=== PATIENT | female | born 1945 ===

== ENCOUNTER 2016-11-27 22:32 | Inpatient (IN) | payer MEDICARE, MEDICAID ==
[~2016-11-27] VITALS: Ht 154.9 cm; Wt 71.8 kg
[~2016-11-27 22:32] MED LIST: ACET325T51 PO; ALPR0.254 PO; ALPR0.5T8 PO; BACL10TA PO; BACL20TA PO; BISA-67 PO; CYAN500L3 SL; FAMO20T PO; FENTANYL 12 MCG/HR TRANSDERM; GABA-502 PO; GABA600T2 PO; LEVO500T16 PO; MELA1TAB11 PO; METR500T PO; OMEP20CA11 PO; OXYC5CAP4 PO; POLY17PO6 PO; Pyridoxine Hcl PO; RISP0.254 PO; SENN-133 PO; SERT50TA9 PO; TIZA2CAP9 PO
[2016-11-27 22:37] VITALS: BP 156/89; PULSE 71; RESP 10; O2SAT 95
--- NOTE | 2016-11-27 22:37 | ED.REPORT ---
HPI-General Illness Date of Service Nov 27, 2016 ED Provider: Shahbaz Hdz MD Pt is a 71 year old female with a hx of encephalopathy, HTN and CVA presenting to the ED via EMS from [facility] due to decreased level of consciousness onset at 2030 tonight. Associated symptoms include agitation and confusion. She was only responsive to painful stimuli; at baseline she is alert and oriented x4. Her library clerk reports that she was last known normal at 1900. However, on arrival paramedics, she became overtly awake and combative though still confused. She arrives to the ED sedated with ketamine per medics due to the pt becoming combative. No reported prior complaints of fever, vomiting, shortness of breath or wheezing. Nursing Notes Stated Complaint: ALTERED MENTAL STATE Chief Complaint: Altered mental status Nursing Notes Reviewed: Yes Allergies: Coded Allergies: aspirin (Verified Allergy, Severe, 04/10/16) Scheduled ([fentanyl 12mcg/hr]) 1 PATCH TRANSDERM q72 hours ([Pyridoxine Hcl]) 50 MG TABLET 50 MG PO HS Alprazolam (Alprazolam) 0.25 Mg Tablet 0.25 MG PO HS Baclofen (Baclofen) 20 Mg Tablet 20 MG PO QAM Baclofen (Baclofen) 10 Mg Tablet 10 MG PO TID at 11,1600,2100 Bisacodyl (Dulcolax) 5 Mg Tablet.dr 5 MG PO DAILY Cyanocobalamin (Vitamin B-12) (B-12) 500 Mcg Tab.rapdis 500 MCG SL DAILY Famotidine (Pepcid) 20 Mg Tablet 20 MG PO DAILY Gabapentin (Gabapentin) 600 Mg Tablet 600 MG PO BID Gabapentin (Gabapentin) 300 Mg Capsule 300 MG PO daily at 1600 Levofloxacin (Levaquin) 500 Mg Tablet 500 MG PO DAILY Melatonin/Pyridoxine (Melatonin 3 mg Tablet) 1 Each Tablet 2 EACH PO HS Metronidazole (Flagyl) 500 Mg Tablet 500 MG PO BID Omeprazole (Omeprazole) 20 Mg Capsule.dr 20 MG PO DAILY Polyethylene Glycol 3350 (Miralax) 17 Gm Powd.pack 17 GM PO BID Risperidone (Risperidone) 0.25 Mg Tablet 0.25 MG PO BID Sennosides (Senna) 8.6 Mg Tablet 8.6 MG PO HS Sertraline HCl (Sertraline) 50 Mg Tablet 50 MG PO DAILY oxyCODONE (oxyCODONE) 5 Mg Capsule 5 MG PO Q4H Scheduled PRN Acetaminophen (Acetaminophen) 325 Mg Tablet 650 MG PO Q4H PRN PRN For Pain Alprazolam (Alprazolam) 0.5 Mg Tablet 0.5 MG PO TID PRN PRN For Anxiety Polyethylene Glycol 3350 (Miralax) 17 Gm Powd.pack 17 GM PO DAILY PRN PRN For Constipation Sennosides (Senna) 8.6 Mg Tablet 17.2 MG PO BID PRN PRN For Constipation Tizanidine (Tizanidine) 2 Mg Capsule 2 MG PO q6 hours PRN PRN For Spasm General Time Seen by MD: 22:33 Chief Complaint Altered mental status Hx Obtained From: EMS Arrived By: Ambulance Sudden in Onset?: Yes Onset Occurred: 1 - 4 hours ago Symptom Duration: Since onset Recent Healthcare: No recent doctor visit, No recent hospitalization Similar Sx Previous: No Past Medical History Past Medical History CVA with residual L sided hemiparesis Hypertension Anxiety Depression Peptic ulcer disease Hx encephalopathy Anemia - iron deficiency GERD Chronic cervical spinal stenosis Past Surgical History Total hysterectomy Back Right hand x5 Smoking History Former Smoker Social History Other Social History: Ambulatory Status Wheelchair Review of Systems Unable to Obtain ROS Mental status Full Review of Systems Constitutional: Denies: Fever Respiratory: Denies: Wheezing GI: Denies: Vomiting Psychiatric: Reports: Agitation, Change mental status, Confusion Physical Exam Vital Signs Vital Signs Date Time Temp Pulse Resp B/P Pulse Ox O2 Delivery O2 Flow Rate FiO2 11/28/16 01:30 64 14 158/68 96 Room Air 11/28/16 01:00 71 11 161/69 93 Room Air 11/28/16 00:30 60 13 124/62 60 Room Air 11/28/16 00:00 64 13 120/50 94 Room Air 11/27/16 23:30 65 14 123/55 94 Room Air 11/27/16 22:37 37.8 71 10 156/89 95 Room Air Initial VS: Reviewed Head / Eyes: Atraumatic, Normocephalic, PERRL ENT: Mucous membranes moist, Conjunctiva normal, No scleral icterus Neck: Supple, Non-tender, Full range of motion Respiratory: Breath sounds normal, Clear to auscultation, No respiratory distress Cardiovascular: Regular rate & rhythm, Heart sounds normal, Intact distal pulses Extremities: Vascular intact, Neuro intact Skin: Warm, Dry, No cyanosis Abdomen: Atraumatic, Soft Bowel Sounds / Distention: Positive: Distention moderate Lower Extremity / Pelvis / MS: No deformity, Neurologic intact, Vascular intact Trace edema bilaterally Neurologic: No sensory deficits Mental Status: Positive: Pharmacologically sedated Interpretation & Diagnostics Lab Results Interpretation Result Diagram: 11/27/16231911/27/162319 Test 11/27/16 23:01 11/27/16 23:20 11/27/16 23:30 11/28/16 01:26 Urine Color Yellow (YELLOW) Urine Appearance Slightly cloudy Urine pH 6.0 (5.0-8.0) Urine Specific [place] 1.029 (1.003-1.035) Urine Protein Tracemg/dL (NEG,TRACE) Urine Glucose (UA) Negativemg/dL (NEGATIVE) Urine Ketones Negativemg/dL (NEGATIVE) Urine Occult Blood Negative (NEGATIVE) Urine Nitrite Positive (NEGATIVE) Urine Bilirubin Negative (NEGATIVE) Urine Urobilinogen Normalmg/dL (NORMAL) Urine Leukocyte Esterase Negative (NEGATIVE) Urine RBC 0-2/hpf (0-2) Urine WBC 6-10/hpf (0-5) Urine Epithelial Cells Moderate/hpf (NONE-MOD) Urine Crystals None seen (NONE SEEN) Urine Bacteria Many/hpf (NONE-FEW) Urine Hyaline Casts Rare/lpf (NONE) Urine Granular Casts None seen (NONE SEEN) Urine Waxy Casts None seen (NONE SEEN) Urine Red Blood Cell Casts None seen (NONE SEEN) Urine White Blood Cell Casts None seen (NONE SEEN) Urine Mucus Present (None Seen) Urine Trichomonas None seen (NONE SEEN) Urine Yeast None (NONE SEEN) Urinalysis Comment None Urine Culture Reflexed Indicated White Blood Count 13.3th/mm3 (3.8-10.1) Red Blood Count 4.79mil/mm3 (3.90-5.20) Hemoglobin 13.0g/dL (12.0-15.6) Hematocrit 41.1% (35.0-46.0) Mean Corpuscular Volume 85.8fL (81-100) Mean Corpuscular Hemoglobin 27.1pg (27.0-35.0) Mean Corpuscular Hemoglobin Concent 31.6% (32.0-37.0) Red Cell Distribution Width 14.5% (12.3-15.4) Platelet Count 336bil/L (150-400) Neutrophils (%) (Auto) 86.4% (40-74) Lymphocytes (%) (Auto) 10.3% (14-46) Monocytes (%) (Auto) 2.9% (4-12) Eosinophils (%) (Auto) 0.1% (0-5) Basophils (%) (Auto) 0.1% (0-3) Sodium Level 140mEq/L (134-144) Potassium Level 4.3mEq/L (3.5-5.2) Chloride Level 98mEq/L (97-108) Carbon Dioxide Level 25mmol/L (18-29) Blood Urea Nitrogen 12mg/dL (8-27) Creatinine 0.53mg/dL (0.57-1.00) Estimat Glomerular Filtration Rate 163mL/min (>59) Glucose Level 123mg/dL (60-99) Calcium Level 9.2mg/dL (8.5-10.1) Magnesium Level 2.0mg/dL (1.6-2.6) Total Bilirubin 0.3mg/dL (0.0-1.2) Aspartate Amino Transf (AST/SGOT) 23U/L (0-50) Alanine Aminotransferase (ALT/SGPT) 11U/L (0-32) Alkaline Phosphatase 138U/L (25-165) Total Protein 7.8g/dL (6.4-8.4) Albumin 3.9g/dL (3.4-5.0) Procalcitonin 0.07ng/mL (0.00-0.08) Alcohols < 10mg/dL (0-10) Lactic Acid Level 1.2mmol/L (0.4-2.0) ECG Interpretation ECG Interpretation: Sinus arrhythmia. Time: 23:13 Interpreted by: ED physician Normal ECG Interpretation: Normal rate (70) X-Ray Chest Interpretation Chest Xray Interpretation: Left lower lobe pneumonia View: Portable, 1 view Interpretation / Wet Read by: Wet read ED physician CT Head Interpretation CONCLUSION: No acute intracranial abnormality. This report was transmitted to the emergency room at 11/28/2016 - 12:13:43 AM PDT. Study: Head CT no contrast Interpretation / Wet Read by: Interpret - Radiologist Re-Eval/Medical Decision Med Decision/Clinical Course 71-year-old female with history of stroke, chronic pain on multiple meds, and encephalopathy, present with altered mental status tonight x-ray appears to show a right lower lobe pneumonia. Moderate UTI also noted. She has remained sedated and quiet since the application of ketamine in the field, well past the metabolic life of ketamine. Oxygenation is remained adequate. She is treated presumptively for aspiration pneumonia with Unasyn and azithromycin. Admitted now to the medicine service. UTI should be treated with the Unasyn and culture is pending. Time of Eval: 01:07 Patient Status: Condition improved Re-Evaluation/Progress Note: Pt sleeping comfortably. Consultation : Referral / Consult Name: Poonam Madrigal DO Consulted With: Hospitalist Call Returned at: 01:33 Intermission Coordinator: Will see patient, Agrees with plan, Accepts admit Counseled Regarding: Diagnosis, Lab results, Need for admission Discharge & Departure Primary Impression: Altered mental status Additional Impressions: Right lower lobe pneumonia Urinary tract infection Disposition: ADMITTED TO HOSPITAL Discharge Condition All VS Reviewed: Yes Condition: Improved Referrals: Art Vance DO (PCP) [place] Attestation Portions of this note were transcribed by Valeria Bryant. I, Dr. Hdz personally performed the history, physical exam and medical decision-making; I reviewed and confirmed the accuracy of the information in the transcribed note. Signed by: Alex Morelos, 11/27/2016 at 0136. copies to: Art Vance Christopher W MD Nov 27, 2016 22:37 VALERIA BRYNAT Nov 27, 2016 22:53 VALERIA BRYANT Nov 27, 2016 22:53
[2016-11-27] MEDS ORDERED: 0.9% Sodium Chloride 1,000 ML IV ONE (22:45)
[2016-11-27 23:30] VITALS: BP 123/55; PULSE 65; RESP 14; O2SAT 94
[2016-11-27 23:33] LABS: APPEARANCE,URINE SLIGHTLY CLOUDY (CLEAR,HAZY); COLOR,URINE YELLOW (YELLOW)
[2016-11-27 23:34] LABS: OCCULT BLOOD,URINE NEGATIVE (NEGATIVE); UROBILINOGEN,URINE NORMAL (NORMAL)
[2016-11-27 23:48] LABS: BASOPHILS % (AUTO) 0.1 % (0-3); EOSINOPHILS % (AUTO) 0.1 % (0-5); MONOCYTES % (AUTO) 2.9 % (4-12); Mean Corpuscular Hemoglobin 27.1 pg (27.0-35.0); Mean Corpuscular Volume 85.8 fL (81-100); NEUTROPHILS % (AUTO) 86.4 % (40-74); Platelet Count 336 bil/L (150-400)
[2016-11-28] VITALS (12 sets, daily range): BP systolic 120–181; BP diastolic 47–78; PULSE 60–93; RESP 11–20; O2SAT 60–96
[2016-11-28] MEDS ORDERED: Ampicillin-Sulbactam Inj 3,000 MG in 0.9% Sodium Chloride 100 ML IV ONE (01:10)
[2016-11-28] MEDS ORDERED: Azithromycin Inj 500 MG in Dextrose 5% w/Vial Mate 250 ML IV ONE (01:10)
[2016-11-28] MEDS ORDERED: Polyethylene Glycol (PEG) 17 Gm Powder PO PRN (02:20)
[2016-11-28] MEDS ORDERED: Alum-Mag Hydrox-Simeth 30 mL Suspension PO PRN (02:20)
--- NOTE | 2016-11-28 02:53 | PCM.HPMED ---
Subjective Date of Service Nov 28, 2016 Primary Provider: Admitting Physician: Primary Care Physician: Art Vance DO Attending Physician: Admit Status: From the Emergency Department Chief Complaint: Altered Mental Status Aspiration Pneumonia History of Present Illness: History per ED note as patient is unresponsive. Clarissa Browne is a 71 year old female with a history of encephalopathy, hypertension and CVA presenting to the ED via EMS from [facility] due to decreased level of consciousness onset at 2030 tonight. Associated symptoms include agitation and confusion. She was only responsive to painful stimuli; at baseline she is alert and oriented x4. Her library services coordinator reports that she was last known normal at 1900. She arrives to the ED sedated with ketamine per medics due to the pt becoming combative. No fever, vomiting, or wheezing. Review of Systems: Unable to obtain as patient is currently unresponsive Allergies Coded Allergies: aspirin (Verified Allergy, Severe, 04/10/16) Home Medications ([fentanyl 12mcg/hr]) 1 PATCH TRANSDERM q72 hours ([Pyridoxine Hcl]) 50 MG TABLET 50 MG PO HS Alprazolam (Alprazolam) 0.25 Mg Tablet 0.25 MG PO HS Baclofen (Baclofen) 20 Mg Tablet 20 MG PO QAM Baclofen (Baclofen) 10 Mg Tablet 10 MG PO TID at 11,1600,2100 Bisacodyl (Dulcolax) 5 Mg Tablet. 5 MG PO DAILY Cyanocobalamin (Vitamin B-12) (B-12) 500 Mcg Tab.rapdis 500 MCG SL DAILY Famotidine (Pepcid) 20 Mg Tablet 20 MG PO DAILY Gabapentin (Gabapentin) 600 Mg Tablet 600 MG PO BID Gabapentin (Gabapentin) 300 Mg Capsule 300 MG PO daily at 1600 Levofloxacin (Levaquin) 500 Mg Tablet 500 MG PO DAILY Melatonin/Pyridoxine (Melatonin 3 mg Tablet) 1 Each Tablet 2 EACH PO HS Metronidazole (Flagyl) 500 Mg Tablet 500 MG PO BID Omeprazole (Omeprazole) 20 Mg Capsule.dr 20 MG PO DAILY Polyethylene Glycol 3350 (Miralax) 17 Gm Powd.pack 17 GM PO BID Risperidone (Risperidone) 0.25 Mg Tablet 0.25 MG PO BID Sennosides (Senna) 8.6 Mg Tablet 8.6 MG PO HS Sertraline HCl (Sertraline) 50 Mg Tablet 50 MG PO DAILY oxyCODONE (oxyCODONE) 5 Mg Capsule 5 MG PO Q4H Scheduled PRN Acetaminophen (Acetaminophen) 325 Mg Tablet 650 MG PO Q4H PRN PRN For Pain Alprazolam (Alprazolam) 0.5 Mg Tablet 0.5 MG PO TID PRN PRN For Anxiety Polyethylene Glycol 3350 (Miralax) 17 Gm Powd.pack 17 GM PO DAILY PRN PRN For Constipation Sennosides (Senna) 8.6 Mg Tablet 17.2 MG PO BID PRN PRN For Constipation Tizanidine (Tizanidine) 2 Mg Capsule 2 MG PO q6 hours PRN PRN For Spasm PMH CVA with residual L sided hemiparesis Hypertension Anxiety Depression Peptic ulcer disease Hx encephalopathy Anemia - iron deficiency GERD Chronic cervical spinal stenosis Surgical History Total hysterectomy Back Right hand x5 Family History Unable to obtain as patient unresponsive Social History Hx Alcohol Use: Yes Hx Substance Use: Yes (used to smoke marijuana) Smoking Status: Former Smoker Exam Vital Signs Vital Sign - Last Date Time Temp Pulse Resp B/P Pulse Ox O2 Delivery O2 Flow Rate FiO2 11/27/16 22:37 37.8 71 10 156/89 95 Room Air Exam General: Patient is somnolent and unarousouable. Did open eyes to name very briefly. HEENT: Normocephalic, atraumatic. Anicteric sclerae, Neck: Supple, Non-tender Cardiovascular: Regular rate and rhythm with no murmurs, rubs, or gallops appreciated Pulmonary: Clear to auscultation bilaterally anteriorly. Normal respiratory effort with no use of accessory muscles. Abdomen: Bowel tones present. Soft, nontender, mildly distended. No hepatosplenomegaly or masses appreciated. Extremities: mild pitting edema, No clubbing, cyanosis, or lymphadenopathy appreciated. Skin: Normal temperature, turgor, and texture; no rash, ulcers, or subcutaneous nodules appreciated. Fentanyl patch seen on upper chest Neurological: Unable to assess as patient is somnolent and unresponsive Psychiatric: Sedated and currently unresponsive Lab and Diagnostics Labs Item Value Date Time Urine Color Yellow 11/27/162300 Urine Appearance Slightly cloudy 11/27/162300 Urine pH 6.0 11/27/162300 Urine Nitrite Positive 11/27/162300 Urine Leukocyte Esterase Negative 11/27/162300 Urine WBC 6-10 /hpf 11/27/162300 Urine RBC 0-2 /hpf 11/27/162300 Urine Occult Blood Negative 11/27/162300 Urine Epithelial Cells Moderate /hpf 11/27/162300 Urine Bacteria Many /hpf 11/27/162300 Alcohols < 10 mg/dL 11/27/162329 Procalcitonin 0.07 ng/mL 11/27/162329 Lactic Acid Level 1.8 mmol/L 11/27/162319 White Blood Count 13.3 th/mm3 H 11/27/162319 Result Diagram: 11/27/16231911/27/162319 X-Rays, CTs and MRIs Chest Xray Interpretation: Left lower lobe pneumonia View: Portable, 1 view Interpretation / Wet Read by: Wet read ED physician Head CT no contrast CONCLUSION: No acute intracranial abnormality. This report was transmitted to the emergency room at 11/28/2016 - 12:13:43 AM PDT. 12-lead ECG Sinus Arrhythmia Additional Diagnostics: ABG 03:21:00 -_ pH_7.363 pCO2_50.5 pO2_65.7 HCO3-28.0 ROOM AIR Assessment & Plan Clarissa Browne is a 71 year old female with a history of encephalopathy, hypertension and CVA presenting to the ED via EMS from [facility] due to altered mental status found to have RLL pneumonia on chest x-ray. Encephalopathy, Present on Admission, Active Likely metabolic. Patient obtunded when evaluating in the ED room 4 hours after ketamine. Prior to that she was apparently confused and combative. Likely secondary to aspiration pneumonia and possible UTI. - CT head shows no acute intracranial abnormalities - ABG ordered due to encephalopathy. Results as above. - Treat aspiration pneumonia and UTI with antibiotics as below - Patient has history of CVA, may consider MRI if not improving clinically. Aspiration Pneumonia, Present on Admission, Active Patient apparently aspirated food per history. Receieved Unasyn and azithromycin in the ED. Chest X-ray reviewed, showing RLL pneumonia. - Will start Zosyn to cover broadly. May narrow based off of sputum cultures. - MRSA swab, Respiratory Viral PCR, Urine strep and legionella antibodies, sputum culture, procalcitonin - Blood cultures pending Suspected Cystitis, Present on Admission, Active Positive Nitrite, Negative Leukocyte esterase, 6-10 WBC, many bacteria. Questionable cystitis. - Urine cultures pending - IV Zosyn COPD, Present on Admission, Active Not in current exacerbation. Patient has intermittent home nocturnal O2 use per history of prior admission, but does not use home inhalers - Monitor O2 - Supplement oxygen - Duonebs Q4HWA prn for shortness of breath Dysphagia, chronic On previous admission in April, patient required Pureed/honey thick diet,1;1 feeding as per speech therapist - Speech therapy evaluation - NPO till swallow eval done - Aspiration precautions Functional Quadriparesis, chronic Observed during prior admission. 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 - Patient requires every 4 hours bed turns etc. - Discussed with pharmacy about medications, med rec will need to be done in the AM after call is made to outpatient pharmacy to very medications. - Will hold home baclofen and flexiril as patient is currently obtunded. Hypertension, Present on Admission, Active - Continue home medications when med rec is done Patient Status: Patient is admitted under inpatient status with expected length of stay greater than 2 midnights due to severity of presenting symptoms and risk of adverse event. Code Status: Full code, unable to evaluate as patient is currently unresponsive. Will need reevaluation. VTE Prophylaxis: Sub-Q Heparin (Unfractionated) VTE Mechanical Devices: Intermittant Pneumatic CD Resuscitation Status: CPR: Attempt Resuscitation Attending Statement The patient was seen and examined together with house staff on 11/27/2016 and I agree with the history, exam and plan as outlined in the note above. Devante Cardenas DO Nov 28, 2016 01:46 Poonam Madrigal DO Nov 28, 2016 06:33
--- NOTE | 2016-11-28 03:00 | NUR ---
Pt admitted to RM 2030 from the ER. Pt came via stretcher. Full assist, no weight bearing. Pt asleep but responsive to stimuli. Upon assessment, pt awoke and began resisting tx. Refuses BP measurement, began to bite and hit. Soft non-violent [place] restraints placed on both wrists. Carrillo in place. Telemetry on.
[2016-11-28] MEDS ORDERED: TIZANIDINE 2 MG PO PRN (03:10)
[2016-11-28] MEDS ORDERED: OXYCODONE 5 MG PO SCH (03:10)
--- NOTE | 2016-11-28 03:28 | ABG ---
DateTimeAnalyzed 03:21:00 -_ pH ____7.363 - 7.350 7.450 pCO2 ___50.5__ -mmHg 35.0 45.0 pO2 ___65.7__ -mmHg 69.0 116 HCO3- ___28.0__ -mmol/L 22.0 26.0 ABE ____2.4__ -mmol/L -2.0 2.0 tHb ___11.5__ -g/dL O2Hb ___89.9__ -% COHb ____1.3__ -% MetHb ____0.5__ -% sO2 ___91.5__ -% FIO2 ___21.0__ -% Drawn By blf - Spontaneous_RR ___10.0__ -b/min Oxygen Device 1 _ROOM AIR - B 757 -mmHg tO2 ___14.6__ -Vol% Manuel test _Positive -
[2016-11-28] MEDS ORDERED: Haloperidol 5 mg/mL Inj IVPUSH ONE (05:50)
--- NOTE | 2016-11-28 07:23 | DRSVH ---
PROCEDURE: CT BRAIN WITHOUT CONTRAST ([id number]) INDICATIONS: ALTERED MENTAL STATUS TECHNIQUE: Noncontrast 4.5 mm thick angled axial sections acquired from the foramen magnum to the vertex, with c oronal reformats. COMPARISON: Outside Film, CT, CT BRAIN WO CON, 01/09/2016, 17:33. FINDINGS: Image quality: Good CSF spaces: Basal cisterns are patent. No extra-axial fluid collections. The ventricles are symmet david in size and shape. Brain: No intracranial bleeds or masses. There is cerebral volume loss for age, with resultant vent ricular and sulcal prominence. There are periventricular and deep white matter chronic small vessel ischemic changes. There is intracranial internal carotid artery atherosclerosis. Skull and face: Calvarium and visualized facial bones appear intact, without suspicious lesions. Sinuses: Visualized sinuses and mastoids are clear. IMPRESSION: No acute intracranial abnormality. No change since the previous CT of the head without co ntrast. Dictated by: Eliu Terry M.D. on 11/28/2016 at 7:18 this report corresponds to the findings of pedro erazo preliminary NSR report. Approved by: Eliu Terry M.D. on 11/28/2016 at 7:21
[2016-11-28] MEDS ORDERED: RISPERIDONE 0.25 MG PO SCH (08:30)
[2016-11-28] MEDS: Famotidine Inj 20 MG in IV Premix 1 EACH IV SCH ×2 (08:33→20:39)
[2016-11-28] MEDS: Piperacillin-Tazo 3.375 Gm Inj 3.375 GM in Dextrose 5% Minibag Plus 50 ML IV SCH ×2 (08:33→16:44)
[2016-11-28] MEDS: Heparin 5,000 Unit/mL Inj SUBQ SCH ×2 (08:38→16:44)
--- NOTE | 2016-11-28 09:00 | NUR ---
PO intake Pt took meds whole in apple sauce this am and did fine. She then asked for a drink and I made nectar thick water. When drinking she later started coughing. Swallow eval already ordered will give them a heads up.
--- NOTE | 2016-11-28 09:31 | DRSVH ---
PROCEDURE: X-RAY CHEST ONE VIEW, PORTABLE ([id number]) INDICATIONS: altered mental status TECHNIQUE: One view of the chest was acquired. COMPARISON: [facility], CR, XR CHEST 1VW (PORTABLE), 04/16/2016, 9:45. [facility], CR, XR CHEST 1VW (PORTABLE), 04/13/2016, 9:35. FINDINGS: Surgical changes and devices: None. Lungs and pleura: No pleural effusions or pneumothorax. Lungs are edematous. Mediastinum: Mediastinal contours appear normal. Heart size is globally enlarged. Bones and chest wall: No suspicious bony lesions. Overlying soft tissues appear unremarkable. IMPRESSION: Chronic CHF pattern, with possible acute exacerbation. Dictated by: Geraldo Middleton M.D. on 11/28/2016 at 9:29 Approved by: Geraldo Middleton M.D. on 11/28/2016 at 9:29
[2016-11-28] MEDS: ALPRAZolam 0.5 mg Tablet PO PRN (11:58)
--- NOTE | 2016-11-28 13:31 | DRSVH ---
PROCEDURE: X-RAY CHEST ONE VIEW, PORTABLE ([id number]) INDICATIONS: fu possible aspiration pna TECHNIQUE: One view of the chest was acquired. COMPARISON: [facility], CR, XR CHEST 1VW (PORTABLE), 11/27/2016, 23:00. [facility], CR, XR CHEST 1VW (PORTABLE), 04/16/2016, 9:45. FINDINGS: Surgical changes and devices: None. Lungs and pleura: No pleural effusions or pneumothorax. Lungs are abnormal with a right lower lobe alveolar consolidation pattern consistent with pneumonia or aspiration. Mediastinum: Mediastinal contours appear normal. Heart size is globally enlarged, to a mild degree. Bones and chest wall: No suspicious bony lesions. Overlying soft tissues appear unremarkable. IMPRESSION: Right lower lobe pneumonia, versus aspiration, mild cardiomegaly. Dictated by: Geraldo Middleton M.D. on 11/28/2016 at 13:29 Approved by: Geraldo Middleton M.D. on 11/28/2016 at 13:30
[2016-11-28 14:17] LABS: APPEARANCE,URINE HAZY (CLEAR,HAZY); COLOR,URINE STRAW (YELLOW); OCCULT BLOOD,URINE TRACE (NEGATIVE); PH,URINE 6.5 (5.0-8.0); UROBILINOGEN,URINE NORMAL (NORMAL)
[2016-11-28] MEDS: oxyCODONE-Acetamin 5-325 mg Tablet PO PRN ×2 (14:39→20:39)
--- NOTE | 2016-11-28 15:56 | NUR ---
Evaluation completed. Please go to "Notes" then click on "Assessments and Notes" (bottom left corner of screen). Then select appropriate discipline tab on top of screen.
--- NOTE | 2016-11-28 19:04 | PCM.PNMED ---
Subjective Date of Service Nov 28, 2016 Subjective Assessment: Patient laying in bed on exam. Patient is cognizant and able to communicate. Patient is anxious and shows some disconnected thought patterns. Family in the room states that this is baseline for her. Patient states that she feels like her sensation in the left side of her face is decreased since admission including mild numbness of the lips. Patient also reports a mild headache which she attributes to being awake "all night". She describes no increasing muscle weakness on the left. No other focal neurological symptoms noted. Events Overnight: No acute events overnight. ROS: Patient complains of chills, and minor abdominal pain. Denies fever, nausea /vomiting, headache, weakness, chest pain, shortness of breath, increased swelling in hands or feet. Exam Vital Signs Vital Sign - Last Date Time Temp Pulse Resp B/P Pulse Ox O2 Delivery O2 Flow Rate FiO2 11/28/16 16:18 36.8 65 20 164/77 95 Room Air Intake and Output 11/27/16 11/27/16 11/28/16 Cumulative From/Thru 15:00 23:00 07:00 11/28/16 03:30 - 11/28/16 06:23 Intake Total 0 ml 0 ml Output Total 300 ml 300 ml Balance -300 ml -300 ml Intake Oral 0 ml 0 ml Output Urine Total 300 ml 300 ml Exam General: No acute distress, well-developed, well-nourished HEENT: Normocephalic, atraumatic. External ears without defect. Pupils equal, round, and reactive to light and accommodation. Anicteric sclerae, moist conjunctivae. Cardiovascular: Regular rate and rhythm with no murmurs, rubs, or gallops appreciated Pulmonary: Nonproductive cough and minimal wheeze, fine crackles appreciated at the lower lung bases, no rhonchi. Normal respiratory effort with no use of accessory muscles. Abdomen: Bowel tones present. Soft, nontender, nondistended. Extremities: Limited movement of the left arm and leg due to previous CVA. No clubbing, cyanosis, edema Skin: Normal temperature, turgor, and texture; no rash, ulcers, or subcutaneous nodules appreciated. Neurological: Cranial nerves grossly intact. Decreased sensation to touch on the entire left side. Normal muscle strength on the right, decreased tone and muscle wasting on the left. Psychiatric: Anxious, easily fearful. Alert and oriented to person, place, and time IVs and Medications IV Fluids 50 mL Zosyn Medications Reviewed: Medications were reviewed in detail Medications Percocet Xanax Lab and Diagnostics Result Diagram: 11/27/16231911/27/162319 Microbiology MRSA PCR negative Urine cultures no growth to date Blood cultures pending 2 Urine strep pneumoniae negative Microbiology ADENOVIRUS RESPIRATORY PCR Final 11/28/16 Not Detected CORONOVIRUS 229E Final 11/28/16 Not Detected CORONOVIRUS HKU1 Final 11/28/16 Not Detected CORONOVIRUS NL63 Final 11/28/16 Not Detected CORONOVIRUS OC43 Final 11/28/16 Not Detected INFLUENZA A PCR Final 11/28/16 Not Detected INFLUENZA B PCR Final 11/28/16 Not Detected METAPNEUMOVIRUS PCR Final 11/28/16 Not Detected RHINOVIRUS OR ENTEROVIRUS PCR Final 11/28/16 Not Detected PARAINFLUENZA 1 PCR Final 11/28/16 Not Detected PARAINFLUENZA 2 PCR Final 11/28/16 Not Detected PARAINFLUENZA 3 PCR Final 11/28/16 Not Detected PARAINFLUENZA 4 PCR Final 11/28/16 Not Detected RESP SYNCYTIAL VIRUS PCR Final 11/28/16 Not Detected Microbiology (Continued) CHLAMDOPHILIA PNEUMONIAE PCR Final 11/28/16 Not Detected MYCOPLASMA PNEUMONIAE PCR Final 11/28/16 MYCO PNEUMONIAE PCR Not Detected Reference Interval Not Detected X-Rays, CTs and MRIs Chest Xray Interpretation: Left lower lobe pneumonia View: Portable, 1 view Interpretation / Wet Read by: Wet read ED physician Head CT no contrast CONCLUSION: No acute intracranial abnormality. This report was transmitted to the emergency room at 11/28/2016 - 12:13:43 AM PDT. 12-lead ECG Sinus Arrhythmia Additional Diagnostics ABG 03:21:00 -_ pH_7.363 pCO2_50.5 pO2_65.7 HCO3-28.0 ROOM AIR Assessment & Plan Clarissa Browne is a 71 year old female with a history of encephalopathy, hypertension and CVA presenting to the ED via EMS from [facility] due to altered mental status found to have RLL pneumonia on chest x-ray. Encephalopathy, Present on Admission, Active Likely metabolic. Patient obtunded when evaluating in the ED room 4 hours after ketamine. Prior to that she was apparently confused and combative. Likely secondary to aspiration pneumonia and possible UTI. - CT head shows no acute intracranial abnormalities - ABG ordered due to encephalopathy. Results as above. - Treat aspiration pneumonia and UTI with antibiotics as below - Patient has history of CVA, symptoms present today may indicate a minor stroke , however, the CT was completed so recently it is unlikely that a repeat CT scan will be beneficial at this time. Since the constellation of symptoms described by the patient are so vague and minor at this point, I believe it is reasonable to continue watching the patient overnight and consider MRI if symptoms worsen. Aspiration Pneumonia, Present on Admission, Active Patient apparently aspirated food per history. Receieved Unasyn and azithromycin in the ED. Chest X-ray reviewed, showing RLL pneumonia. - Continue Zosyn to cover broadly. May narrow based off of sputum cultures. - MRSA swab, Respiratory Viral PCR, Urine strep and legionella antibodies, negative. - Procalcitonin 0.07 - Blood cultures 2 pending Cystitis, Present on Admission, active. Initial UA showed Positive Nitrite, Negative Leukocyte esterase, 6-10 WBC, many bacteria. Results Questionable for cystitis. - Repeat urine analysis shows few bacteria with 0-5 WBC. - Urine cultures show E. Coli. with sensitivity to Augmentin. Continue IV Zosyn for now. Upon DC change to PO Augmentin. COPD, Present on Admission, Active Not in current exacerbation. Patient has intermittent home nocturnal O2 use per history of prior admission, but does not use home inhalers - Monitor O2 - Supplement oxygen - Duonebs Q4HWA prn for shortness of breath Dysphagia, chronic On previous admission in April, patient required Pureed/honey thick diet,1;1 feeding as per speech therapist - Speech therapy evaluation done. Speech therapy requested x-ray barium swallow with food - NPO until further assessment can be undergone. - Aspiration precautions Functional Quadriparesis, chronic Observed during prior admission. 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 - Patient requires every 4 hours bed turns etc. - Discussed with pharmacy about medications, med rec will need to be done in the AM after call is made to outpatient pharmacy to very medications. - Baclofen restarted PRN. Percocet and alprazolam also available PRN. Patient Status: We will monitor the pt in the hospital today, likely discharge in 48 hrs if obvious clinical improvement is made. Code Status: Full code VTE Prophylaxis: Sub-Q Heparin (Unfractionated) VTE Mechanical Devices: Intermittant Pneumatic CD Resuscitation Status: CPR: Attempt Resuscitation Attending Statement The patient was seen and examined together with Dr. Gonzalez on 11/30/16 and I have added additional information to the note above. Griffin Gonzalez DO Nov 28, 2016 19:04 Susana Chery DO Nov 30, 2016 18:20
[2016-11-28] MEDS ORDERED: MELA3TAB35 PO (22:07)
[2016-11-28] MEDS ORDERED: MAGN250T29 PO (22:11)
[2016-11-28] MEDS ORDERED: PYR50 PO (22:11)
[2016-11-29] VITALS (7 sets, daily range): BP systolic 139–196; BP diastolic 63–88; PULSE 55–85; RESP 18–20; O2SAT 93–97
[2016-11-29] MEDS: Piperacillin-Tazo 3.375 Gm Inj 3.375 GM in Dextrose 5% Minibag Plus 50 ML IV SCH ×3 (01:13→16:19)
[2016-11-29] MEDS: Heparin 5,000 Unit/mL Inj SUBQ SCH ×3 (01:13→16:17)
[2016-11-29] MEDS: oxyCODONE-Acetamin 5-325 mg Tablet PO PRN ×4 (03:06→23:52)
--- NOTE | 2016-11-29 03:34 | NUR ---
Needs Pt is teary and yells out for demands. Requesting several blankets and heat turned to top degree. Given 3 blankets and room at 74 degrees. Pt is diaphoretic and wet. States that "I feel cold all the time." When told that she is sweating d/t so many blankets pt gets agitated. Difficult to reason with.
[2016-11-29] MEDS: ALPRAZolam 0.5 mg Tablet PO PRN ×4 (03:40→23:52)
--- NOTE | 2016-11-29 03:44 | NUR ---
BP Provider notified that pt's BP trend is increasing. Currently 196/71.
[2016-11-29 07:53] LABS: BASOPHILS % (AUTO) 0.5 % (0-3); MONOCYTES % (AUTO) 8.8 % (4-12); Mean Corpuscular Hemoglobin 27.4 pg (27.0-35.0); Mean Corpuscular Volume 86.7 fL (81-100); NEUTROPHILS % (AUTO) 59.6 % (40-74); Platelet Count 326 bil/L (150-400)
[2016-11-29] MEDS: Famotidine Inj 20 MG in IV Premix 1 EACH IV SCH ×2 (08:51→21:27)
[2016-11-29] MEDS: Ondansetron 2 mg/mL 2 mL Inj IVPUSH PRN ×2 (10:57→23:22)
--- NOTE | 2016-11-29 11:56 | NUR ---
Anxiety Patient c/o nausea and anxiety as well as a 10/10 RODRIGUEZ after returning from barium swallow. PRN baclofen, percocet, xanax and zofran given. On reassessment patient stated that the medications were not helping. She also c/o being soaking wet. Patient brief/bedding/gown all completely dry but were changed per pt request. Temp 99.1, all other VSS. Skin warm and slightly clammy. She continued to c/o feeling wet and cold. Warm blankets were provided and MD notified. Patient currently resting with eyes closed
--- NOTE | 2016-11-29 13:03 | PCM.PNMED ---
Subjective Date of Service Nov 29, 2016 Subjective Assessment: Patient is awake and alert lying in bed on assessment. Patient is concerned about getting the appropriate pain medication which was addressed. She was taken for the barium swallow this morning around 10:00, since that time she has been complaining of chills and a coolness which is felt locally on her backside and perianal area. She states that she feels wet. This was assessed however no wetness could be appreciated. Patient states that her symptoms complained of yesterday, specifically headache and numbness, had resolved overnight but she is experiencing headache again this morning. Events Overnight: No acute events overnight. ROS: Complains of headache which waxes and wanes, mild abdominal pain. Denies nausea/vomiting, weakness, abdominal pain, chest pain, shortness of breath, increased swelling in hands or feet. Exam Vital Signs Vital Sign - Last Date Time Temp Pulse Resp B/P Pulse Ox O2 Delivery O2 Flow Rate FiO2 11/29/16 09:13 Supplement Oxygen 11/29/16 09:00 55 11/29/16 08:48 37.3 18 164/88 97 2.00 Intake and Output 11/28/16 11/28/16 11/29/16 Cumulative From/Thru 15:00 23:00 07:00 11/28/16 03:30 - 11/29/16 05:57 Intake Total 174 ml 118 ml 292 ml Output Total 400 ml 1400 ml 2100 ml Balance -226 ml -1282 ml -1808 ml Intake Oral 118 ml 118 ml IV Total 174 ml 174 ml Output Urine Total 400 ml 1400 ml 2100 ml # Bowel Movements 0 0 Exam General: Mild distress, well-developed, well-nourished HEENT: Normocephalic, atraumatic. External ears without defect. Pupils equal, round, and reactive to light and accommodation. Anicteric sclerae, moist conjunctivae. Cardiovascular: Regular rate and rhythm with no murmurs, rubs, or gallops appreciated Pulmonary: Clear to auscultation bilaterally no wheezes, Rales or rhonchi appreciated. Normal respiratory effort with no use of accessory muscles. Abdomen: Bowel tones present. Soft, nontender, nondistended. Extremities: Limited movement of the left arm and leg due to previous CVA. No clubbing, cyanosis, edema Skin: Normal temperature, turgor, and texture; no rash, ulcers, or subcutaneous nodules appreciated. Neurological: Cranial nerves grossly intact. Decreased sensation to touch on the entire left side. Normal muscle strength on the right, decreased tone and muscle wasting on the left. Psychiatric: Anxious, easily fearful. Alert and oriented to person, place, and time IVs and Medications IV Fluids IV Zosyn 50 mL Medications Reviewed: Medications were reviewed in detail Medications High-risk medications include: Percocet Baclofen Alprazolam Lab and Diagnostics Result Diagram: 11/29/1674311/29/16743 Microbiology MRSA PCR negative Urine cultures no growth to date Blood cultures pending 2 Urine strep pneumoniae negative Microbiology ADENOVIRUS RESPIRATORY PCR Final 11/28/16 Not Detected CORONOVIRUS 229E Final 11/28/16 Not Detected CORONOVIRUS HKU1 Final 11/28/16 Not Detected CORONOVIRUS NL63 Final 11/28/16 Not Detected CORONOVIRUS OC43 Final 11/28/16 Not Detected INFLUENZA A PCR Final 11/28/16 Not Detected INFLUENZA B PCR Final 11/28/16 Not Detected METAPNEUMOVIRUS PCR Final 11/28/16 Not Detected RHINOVIRUS OR ENTEROVIRUS PCR Final 11/28/16 Not Detected PARAINFLUENZA 1 PCR Final 11/28/16 Not Detected PARAINFLUENZA 2 PCR Final 11/28/16 Not Detected PARAINFLUENZA 3 PCR Final 11/28/16 Not Detected PARAINFLUENZA 4 PCR Final 11/28/16 Not Detected RESP SYNCYTIAL VIRUS PCR Final 11/28/16 Not Detected Microbiology (Continued) CHLAMDOPHILIA PNEUMONIAE PCR Final 11/28/16 Not Detected MYCOPLASMA PNEUMONIAE PCR Final 11/28/16 MYCO PNEUMONIAE PCR Not Detected Reference Interval Not Detected X-Rays, CTs and MRIs Chest Xray Interpretation: Left lower lobe pneumonia View: Portable, 1 view Interpretation / Wet Read by: Wet read ED physician Head CT no contrast CONCLUSION: No acute intracranial abnormality. This report was transmitted to the emergency room at 11/28/2016 - 12:13:43 AM PDT. 12-lead ECG Sinus Arrhythmia Additional Diagnostics ABG 03:21:00 -_ pH_7.363 pCO2_50.5 pO2_65.7 HCO3-28.0 ROOM AIR Assessment & Plan Clarissa Browne is a 71 year old female with a history of encephalopathy, hypertension and CVA presenting to the ED via EMS from [facility] due to altered mental status found to have RLL pneumonia on chest x-ray. Encephalopathy, Present on Admission, Resolving Likely metabolic. Patient obtunded when evaluating in the ED room 4 hours after ketamine. Prior to that she was apparently confused and combative. Likely secondary to aspiration pneumonia. - CT head shows no acute intracranial abnormalities - ABG ordered due to encephalopathy. Results as above. - Treat aspiration pneumonia with antibiotics as below - Patient has history of CVA, 11/28 patient complained of vague neurological symptoms including numbness of the left face, and daughter thought that there might be a change to her typical appearance specifically on the left side. However, based on the fact that the original CT was negative a repeat CT scan or MRI will be done based on progressive neurological symptoms. Aspiration Pneumonia, Present on Admission, Active Patient apparently aspirated food per history. Received Unasyn and azithromycin in the ED. Chest X-ray reviewed, showing RLL pneumonia. - Continue Zosyn to cover broadly. May narrow based off of PCR results. Patient does not have productive cough and sputum cultures were not able to be obtained. - MRSA swab, Respiratory Viral PCR, Urine strep and legionella antibodies, negative. - Procalcitonin 0.07 - Blood cultures 2 finalized, one of the cultures shows gram-positive cocci, the other culture shows no growth. Based on the MRSA swab negative no need for vancomycin at this time, continue IV Zosyn. - White count returned to normal, will continue to monitor patient in the hospital today, if all is well she may be discharged tomorrow. Cystitis, Present on Admission, resolved. Initial UA showed Positive Nitrite, Negative Leukocyte esterase, 6-10 WBC, many bacteria. Results Questionable for cystitis. - Repeat urine analysis shows few bacteria with 0-5 WBC - Urine cultures positive for E-coli - Continue IV Zosyn will adjust based on sensitivities COPD, Present on Admission, Active Not in current exacerbation. Patient has intermittent home nocturnal O2 use per history of prior admission, but does not use home inhalers - Monitor O2 - Supplement oxygen - Duonebs Q4HWA prn for shortness of breath Dysphagia, chronic On previous admission in [place], patient required Pureed/honey thick diet,1;1 feeding as per speech therapist - Speech therapy evaluation done. Speech therapy requested x-ray barium swallow with food, which showed "No laryngeal penetration or tracheobronchial aspiration." - Patient may advance diet as tolerated. - Aspiration precautions Functional Quadriparesis, chronic Observed during prior admission. 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 - Patient requires every 4 hours bed turns, continue prophylaxis protocol to prevent pressure ulcers - Baclofen restarted PRN. Chronic pain - Continue Percocet and alprazolam PRN. Patient Status: Patient is progressing well and her encephalopathy most likely secondary to PNA and cystitis is improving. She will most likely be ready for discharge in the next 1-2 days. Code Status: Full code VTE Prophylaxis: Sub-Q Heparin (Unfractionated) VTE Mechanical Devices: Intermittant Pneumatic CD Resuscitation Status: CPR: Attempt Resuscitation Attending Statement The patient was seen and examined together with Dr. Gonzalez on 11/29/16 and I have added additional information to the note above. Griffin Gonzalez DO Nov 29, 2016 13:03 Susana Chery DO Nov 30, 2016 07:59
--- NOTE | 2016-11-29 15:34 | DRSVH ---
PROCEDURE: X-RAY BARIUM SWALLOW WITH FOOD & VIDEOGRAPHY ([id number]) INDICATIONS: dysphagia TECHNIQUE: Examination was conducted in conjunction with speech pathology per standard protocol. In the lateral projection, filming was performed of the patient swallowing. AP projection filming may also be performed with patient swallowing. COMPARISON: [facility], CR, XR BARIUM SWALLOW FOOD & VIDEO, 04/13/2016, 14:24. FINDINGS: Function: The oral preparatory phase appears normal, with proper containment. The subsequent oral pr opulsive phase, pharyngeal phase, and esophageal phase of swallowing also appear normal with all prof fered substances. No laryngotracheal penetration or aspiration. No pathologic vallecular pooling. The attending physician was personally present in the room during the examination. Morphology: No cricopharyngeal bar is identified. No cervical esophageal webs. No Zenker's diverti culum. No strictures. IMPRESSION: No laryngeal penetration or tracheobronchial aspiration. Dictated by: Johnathon Kurtz [facility] Interpreted: Geraldo Middleton MD on 11/29/2016 at 10:28 Approved by: Geraldo Middleton M.D. on 11/29/2016 at 15:32
--- NOTE | 2016-11-29 19:00 | NUR ---
Pain/Anxiety: c/o 8/10 generalized pain and states she is very anxious. Repositioned patient for comfort, Percocet 5-325mg PO, Tylenol 325mg PO and Xanax 0.5mg PO. Patient continues to report pain /10. Patient continues to be anxious reporting she is cold. When asked if she would like blankets she responded "I don't know what I want". Continued to report being cold, Temperature was taken and was within normal range. Pt was repositioned and provided with warm blankets then she stated she was too hot and became upset. Spent about 40 minutes with patient attempting to make her comfortable. Frequent founding in place and patient uses call light for needs.
[2016-11-30] MEDS: Heparin 5,000 Unit/mL Inj SUBQ SCH ×2 (00:26→08:32)
[2016-11-30] MEDS: Piperacillin-Tazo 3.375 Gm Inj 3.375 GM in Dextrose 5% Minibag Plus 50 ML IV SCH ×2 (00:27→08:32)
[2016-11-30 04:19] VITALS: BP 137/72; PULSE 65; RESP 18; O2SAT 95
[2016-11-30 04:28] LABS: BASOPHILS % (AUTO) 0.3 % (0-3); EOSINOPHILS % (AUTO) 1.3 % (0-5); Mean Corpuscular Hemoglobin 26.9 pg (27.0-35.0); Mean Corpuscular Volume 85.3 fL (81-100); NEUTROPHILS % (AUTO) 53.1 % (40-74); Platelet Count 334 bil/L (150-400)
[2016-11-30] MEDS: oxyCODONE-Acetamin 5-325 mg Tablet PO PRN ×2 (05:48→10:20)
--- NOTE | 2016-11-30 06:22 | NUR ---
Pain c/o pain x2 this shift. Prn baclofen and Percocet administered and effective. Currently resting in bed without any complaints.
[2016-11-30] MEDS: Famotidine Inj 20 MG in IV Premix 1 EACH IV SCH (08:32)
[2016-11-30 08:38] VITALS: BP 167/80; PULSE 78; O2SAT 94
[2016-11-30] MEDS ORDERED: AMOX-363 PO ×2 (09:42→09:55)
--- NOTE | 2016-11-30 09:54 | PCM.DIMED ---
Griffin Gonzalez DO 11/30/16 0923: Discharge Instructions Date of Service Nov 30, 2016 Dates of Hospitalization Nov 28, 2016 at 01:52 Discharge Diagnosis Discharge Diagnosis Encephalopathy, Present on Admission, Resolving Aspiration Pneumonia, Present on Admission, Active Cystitis, Present on Admission, resolved. COPD, Present on Admission, Active Dysphagia, chronic Functional Quadriparesis, chronic Chronic pain Medication Instructions Additional med instructions Augmentin 500/125 Test Results Test Results X-RAY BARIUM SWALLOW WITH FOOD & VIDEOGRAPHY IMPRESSION: No laryngeal penetration or tracheobronchial aspiration. Dictated by: Johnathon Kurtz [facility] Interpreted: Geraldo Middleton MD on 11/29/2016 at 10 :28 Approved by: Geraldo Middleton M.D. on 11/29/2016 at 15:32 X-RAY CHEST ONE VIEW, PORTABLE IMPRESSION: Right lower lobe pneumonia, versus aspiration, mild cardiomegaly. Dictated by: Geraldo Middleton M.D. on 11/28/2016 at 13:29 Approved by: Geraldo Middleton M.D. on 11/28/2016 at 13:30 X-RAY CHEST ONE VIEW, PORTABLE IMPRESSION: Chronic CHF pattern, with possible acute exacerbation. Dictated by: Geraldo Middleton M.D. on 11/28/2016 at 9:29 Approved by: Geraldo Middleton M.D. on 11/28/2016 at 9:29 CT BRAIN WITHOUT CONTRAST IMPRESSION: No acute intracranial abnormality. No change since the previous CT of the head without contrast. Dictated by: Eliu Terry M.D. on 11/28/2016 at 7:18 this report corresponds to the findings of the preliminary NSR report. Approved by: Eliu Terry M.D. on 11/28/2016 at 7:21 Diet Discharge Diet: No restrictions Activity Discharge Activity: No restrictions Call your provider Call your provider for: Fever or Chills, Shortness of breath, Bleeding, Chest pain, Vomitting, Excessive diarrhea, Weakness (unilateral) Patient Instructions Patient Instructions You came to the hospital on 11/28 with a pneumonia and a urinary tract infection. These were both treated with IV antibiotics for 2 days and we would like you you continue oral antibiotics for the next 5 days. Please take: Augmentin 500/125mg twice per day starting on 12/01 and ending on 12/05 Follow-up plan Follow-up with your primary care doctor within the next week. Follow-up with PCP in: 1 week Susana Chery DO 11/30/16 1319: Discharge Instructions Attending's Statement The patient was seen and examined together with Dr. Gonzalez on 11/30/16 and I agree with the history, exam and plan as outlined in the note above. Griffin Gonzalez DO Nov 30, 2016 09:23 Susana Chery DO Nov 30, 2016 13:19
--- NOTE | 2016-11-30 10:13 | NUR ---
Social Work: Initial Assessment/Discharge/Multidisciplinary Rounds D: Per EMR review, pt is a 71 year old female admitted for Rt Lower Lobe Pneumonia, Altered Mental Status. Pt is Medicare with [employer] supplement; pt has no LTC or VA Benefits. PCP is Dr. Art Vance. [facility] is not listed. Advanced directives completed- MACHINE APPLICATOR CEMENTER requested copy for chart. RA score is high, 6/8. MACHINE APPLICATOR CEMENTER met with the patient at bedside. Sw role explained, contact info and discharge planning checklist provided. Pt is a LTC resident at [facility]. Pt uses a w/c at baseline and is 2PA for all transfers. Pt states that she would like to return to [facility]. Pt discussed in am rounds. Pt is medically stable for discharge back to [facility]. Pt is followed by Dr. Vance. Capacity for self-care discussed- no concerns about self-care as pt receives assistance from SNF staff. Pt states that she typically transports via cabulance. MACHINE APPLICATOR CEMENTER spoke with Zion, human resources coordinator at [facility]. He states that they are able to accept the patient back today and will bring her w/c and provide transportation. He is requesting that MD write orders for pt to participate in PT and OT services at [facility] as pt could qualify for Medicare services based on her current mobility limitations. Transportation tentatively arranged for 1300 today. MACHINE APPLICATOR CEMENTER will call if this needs to be changed A: Pt who is w/c bound at baseline. P: Pt to discharge back to [facility] with Dr. Vance to follow. MACHINE APPLICATOR CEMENTER to fax discharge ppw to [facility]. Transport tentatively arranged for 1300 PATRICK Romo Addendum: 11/30/16 at 1028 by MOHAN JAMES Amended: Links added. Addendum: 11/30/16 at 1103 by MOHAN VALENZUELA SS Orders completed to discharge to skilled rehab. Case Management order received to facilitate discharge back to [facility]. MACHINE APPLICATOR CEMENTER has faxed orders and discharge paperwork. Transportation confirmed for 1300. , bedside RN and patient aware of this.
[2016-11-30] MEDS: ALPRAZolam 0.5 mg Tablet PO PRN (10:20)
--- NOTE | 2016-11-30 11:23 | PCM.DC.MED ---
Discharge Summary Date of Service Nov 30, 2016 Dates of Hospitalization Date of Hospital Admission Nov 28, 2016 at 01:52 Date of Discharge: Nov 30, 2016 Providers: Admitting Physician: Poonam Madrigal DO Primary Care Physician: Art Vance DO Attending Physician: Susana Chery DO Diagnosis at Time of Discharge Diagnosis at Time of Discharge Encephalopathy, Present on Admission, Resolving Aspiration Pneumonia, Present on Admission, Active Cystitis, Present on Admission, resolved. COPD, Present on Admission, Active Dysphagia, chronic Functional Quadriparesis, chronic Chronic pain Procedures XRay, CTs & MRIs X-RAY BARIUM SWALLOW WITH FOOD & VIDEOGRAPHY IMPRESSION: No laryngeal penetration or tracheobronchial aspiration. Dictated by: Johnathon Kurtz RRA Interpreted: Geraldo Middleton MD on 11/29/2016 at 10 :28 Approved by: Geraldo Middleton M.D. on 11/29/2016 at 15:32 X-RAY CHEST ONE VIEW, PORTABLE IMPRESSION: Right lower lobe pneumonia, versus aspiration, mild cardiomegaly. Dictated by: Geraldo Middleton M.D. on 11/28/2016 at 13:29 Approved by: Geraldo Middleton M.D. on 11/28/2016 at 13:30 X-RAY CHEST ONE VIEW, PORTABLE IMPRESSION: Chronic CHF pattern, with possible acute exacerbation. Dictated by: Geraldo Middleton M.D. on 11/28/2016 at 9:29 Approved by: Geraldo Middleton M.D. on 11/28/2016 at 9:29 CT BRAIN WITHOUT CONTRAST IMPRESSION: No acute intracranial abnormality. No change since the previous CT of the head without contrast. Dictated by: Eliu Terry M.D. on 11/28/2016 at 7:18 this report corresponds to the findings of the preliminary NSR report. Approved by: Eliu Terry M.D. on 11/28/2016 at 7:21 . ECG 12 Lead Sinus Arrhythmia Other Diagnostics AB 03:21:00 -_ pH_7.363 pCO2_50.5 pO2_65.7 HCO3-28.0 ROOM AIR Brief History Clarissa Browne is a 71 year old female with a history of encephalopathy, hypertension and CVA presenting to the ED via EMS from [facility] due to decreased level of consciousness onset at 2029 on 11/28. Associated symptoms include agitation and confusion. Xray was done in the ED which showed RLL infltrate likely pneumonia possibly due to aspiration blood culture showed positive for coagulase-negative Staphylococcus. A urinalysis was also completed which showed questionable infection. She was started on IV Zosyn at that time. Urine cultures revealed infection with E. Coli sensitive to Augmentin. Multiple CXRs we done to evaluate for progressive pneumonia or aspiration as there was some concern for her ability to swallow appropriately. Speech therapy evaluated the pt and suggested barrium swallow with video assessment. This was completed and the pt was found to have no significant defects. Clinically the pt improved and is ready to be discharged on 11/30 back to the snf facility and finish her course of antibiotics with Augmentin. Hospital Course Clarissa Browne is a 71 year old female with a history of encephalopathy, hypertension and CVA presenting to the ED via EMS from [facility] due to altered mental status found to have RLL pneumonia on chest x-ray and cystitis. Encephalopathy, Present on Admission, Resolving Likely metabolic. Patient obtunded when evaluating in the ED room 4 hours after ketamine. Prior to that she was apparently confused and combative. Possibly secondary to aspiration pneumonia. - CT head shows no acute intracranial abnormalities - ABG ordered due to encephalopathy showed slight resp acidosis with pH low normal. - Pneumonia treatment with antibiotics as below - Patient has history of CVA, 11/28 patient complained of vague neurological symptoms including numbness of the left face, and daughter thought that there might be a change to her typical appearance specifically on the left side. However, based on the fact that the original CT was negative a repeat CT scan or MRI will be done based on progressive neurological symptoms. Aspiration Pneumonia, Present on Admission, Active Patient apparently aspirated food per history. Received Unasyn and azithromycin in the ED. Chest X-ray reviewed, showing RLL pneumonia. - Zosyn to cover broadly patient will be discharged on Augmentin. Patient does not have productive cough and sputum cultures were not able to be obtained. - MRSA swab, Respiratory Viral PCR, Urine strep and legionella antibodies, negative. - Procalcitonin 0.07 - Blood cultures 2 finalized, one of the cultures was positive for coagulase- negative staphylococci, the other culture shows no growth. - Patient was negative for MRSA Cystitis, Present on Admission, active. Initial UA showed Positive Nitrite, Negative Leukocyte esterase, 6-10 WBC, many bacteria. Results Questionable for cystitis. - Repeat urine analysis shows few bacteria with 0-5 WBC - Urine cultures positive for E-coli - based on urine culture sensitivities pt will be switched to Augmentin to cover cystitis as well as possible aspiration PNA. COPD, Present on Admission, chronic Not in current exacerbation. Patient has intermittent home nocturnal O2 use per history of prior admission, but does not use home inhalers - Monitor O2 - Supplement oxygen - Duonebs Q4HWA prn for shortness of breath Dysphagia, chronic On previous admission in April, patient required Pureed/honey thick diet,1;1 feeding as per speech therapist - Speech therapy evaluation done. Speech therapy requested x-ray barium swallow with food, which showed "No laryngeal penetration or tracheobronchial aspiration." - Patient may advance diet as tolerated. - Aspiration precautions Functional Quadriparesis, chronic Observed during prior admission. 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 - Patient requires every 4 hours bed turns, continue prophylaxis protocol to prevent pressure ulcers - Baclofen restarted PRN. Chronic pain - Continue Percocet and alprazolam PRN. Patient Status: Patient has made great progress clinically and is able to be DC back to [facility]. Code Status: Full code Exam Vital Signs (Last) Date Time Temp Pulse Resp B/P Pulse Ox O2 Delivery O2 Flow Rate FiO2 11/30/16 08:38 37.1 78 167/80 94 Room Air 11/30/16 04:19 18 11/29/16 08:48 2.00 Exam General: Mild distress, well-developed, well-nourished HEENT: Normocephalic, atraumatic. External ears without defect. Pupils equal, round, and reactive to light and accommodation. Anicteric sclerae, moist conjunctivae. Cardiovascular: Regular rate and rhythm with no murmurs, rubs, or gallops appreciated Pulmonary: Clear to auscultation bilaterally no wheezes, Rales or rhonchi appreciated. Normal respiratory effort with no use of accessory muscles. Abdomen: Bowel tones present. Soft, nontender, nondistended. Extremities: Limited movement of the left arm and leg due to previous CVA. No clubbing, cyanosis, edema Skin: Normal temperature, turgor, and texture; no rash, ulcers, or subcutaneous nodules appreciated. Neurological: Cranial nerves grossly intact. Decreased sensation to touch on the entire left side. Normal muscle strength on the right, decreased tone and muscle wasting on the left. Psychiatric: Anxious, easily fearful. Alert and oriented to person, place, and time Test 11/27/16 00:00 11/27/16 23:20 11/27/16 23:30 11/28/16 01:26 Urine Legionella pneumophilia Ag Negative (Negative) Magnesium Level 2.0mg/dL (1.6-2.6) Alcohols < 10mg/dL (0-10) Lactic Acid Level 1.2mmol/L (0.4-2.0) Test 11/28/16 07:26 11/28/16 11:49 11/29/16 07:44 11/30/16 04:10 Ammonia 53ug/dL (18-53) Urine Color Straw (YELLOW) Urine Appearance Hazy (CLEAR,HAZY) Urine pH 6.5 (5.0-8.0) Urine Specific [place] 1.020 (1.003-1.035) Urine Protein Negativemg/dL (NEG,TRACE) Urine Glucose (UA) Negativemg/dL (NEGATIVE) Urine Ketones Negativemg/dL (NEGATIVE) Urine Occult Blood Trace (NEGATIVE) Urine Nitrite Negative (NEGATIVE) Urine Bilirubin Negative (NEGATIVE) Urine Urobilinogen Normalmg/dL (NORMAL) Urine Leukocyte Esterase Negative (NEGATIVE) Urine RBC 0-2/hpf (0-2) Urine WBC 0-5/hpf (0-5) Urine Epithelial Cells Occasional/hpf (NONE-MOD) Urine Crystals None seen (NONE SEEN) Urine Bacteria Few/hpf (NONE-FEW) Urine Hyaline Casts None/lpf (NONE) Urine Granular Casts None seen (NONE SEEN) Urine Waxy Casts None seen (NONE SEEN) Urine Red Blood Cell Casts None seen (NONE SEEN) Urine White Blood Cell Casts None seen (NONE SEEN) Urine Mucus None seen (None Seen) Urine Trichomonas None seen (NONE SEEN) Urine Yeast None (NONE SEEN) Urinalysis Comment None Urine Culture Reflexed Not indicated Procalcitonin 0.05ng/mL (0.00-0.08) White Blood Count 7.2th/mm3 (3.8-10.1) Red Blood Count 4.75mil/mm3 (3.90-5.20) Hemoglobin 12.8g/dL (12.0-15.6) Hematocrit 40.5% (35.0-46.0) Mean Corpuscular Volume 85.3fL (81-100) Mean Corpuscular Hemoglobin 26.9pg (27.0-35.0) Mean Corpuscular Hemoglobin Concent 31.6% (32.0-37.0) Red Cell Distribution Width 14.9% (12.3-15.4) Platelet Count 334bil/L (150-400) Neutrophils (%) (Auto) 53.1% (40-74) Lymphocytes (%) (Auto) 34.2% (14-46) Monocytes (%) (Auto) 11.0% (4-12) Eosinophils (%) (Auto) 1.3% (0-5) Basophils (%) (Auto) 0.3% (0-3) Sodium Level 144mEq/L (134-144) Potassium Level 3.5mEq/L (3.5-5.2) Chloride Level 102mEq/L (97-108) Carbon Dioxide Level 29mmol/L (18-29) Blood Urea Nitrogen 7mg/dL (8-27) Creatinine 0.44mg/dL (0.57-1.00) Estimat Glomerular Filtration Rate 202mL/min (>59) Glucose Level 103mg/dL (60-99) Calcium Level 9.3mg/dL (8.5-10.1) Total Bilirubin 0.3mg/dL (0.0-1.2) Aspartate Amino Transf (AST/SGOT) 22U/L (0-50) Alanine Aminotransferase (ALT/SGPT) 10U/L (0-32) Alkaline Phosphatase 114U/L (25-165) Total Protein 7.3g/dL (6.4-8.4) Albumin 3.8g/dL (3.4-5.0) Microbiology Results MRSA PCR negative Urine cultures no growth to date Blood cultures pending 2 Urine strep pneumoniae negative Microbiology ADENOVIRUS RESPIRATORY PCR Final 11/28/16 Not Detected CORONOVIRUS 229E Final 11/28/16 Not Detected CORONOVIRUS HKU1 Final 11/28/16 Not Detected CORONOVIRUS NL63 Final 11/28/16 Not Detected CORONOVIRUS OC43 Final 11/28/16 Not Detected INFLUENZA A PCR Final 11/28/16 Not Detected INFLUENZA B PCR Final 11/28/16 Not Detected METAPNEUMOVIRUS PCR Final 11/28/16 Not Detected RHINOVIRUS OR ENTEROVIRUS PCR Final 11/28/16 Not Detected PARAINFLUENZA 1 PCR Final 11/28/16 Not Detected PARAINFLUENZA 2 PCR Final 11/28/16 Not Detected PARAINFLUENZA 3 PCR Final 11/28/16 Not Detected PARAINFLUENZA 4 PCR Final 11/28/16 Not Detected RESP SYNCYTIAL VIRUS PCR Final 11/28/16 Not Detected Microbiology (Continued) CHLAMDOPHILIA PNEUMONIAE PCR Final 11/28/16 Not Detected MYCOPLASMA PNEUMONIAE PCR Final 11/28/16 MYCO PNEUMONIAE PCR Not Detected Reference Interval Not Detected Discharge Medications Discharge Medications Alprazolam (Alprazolam) 0.25 Mg Tablet 0.25 MG PO HS (Reported) Amoxicillin/Clav K 500-125 mg (Augmentin 500-125 mg) 1 Each Tablet 1 TABLET PO BID Prescribed by: MONISHA SALGADO DO Baclofen (Baclofen) 20 Mg Tablet 20 MG PO QAM (Reported) Baclofen (Baclofen) 10 Mg Tablet 10 MG PO TID at 11,1600,2100 (Reported) Bisacodyl (Dulcolax) 5 Mg Tablet.dr 5 MG PO QAM (Reported) Cyanocobalamin (Vitamin B-12) (B-12) 500 Mcg Tab.rapdis 500 MCG SL QAM (Reported ) Famotidine (Pepcid) 20 Mg Tablet 20 MG PO DAILY Prescribed by: KELLY GERMAIN MD Gabapentin (Gabapentin) 600 Mg Tablet 600 MG PO BID (Reported) Gabapentin (Gabapentin) 300 Mg Capsule 300 MG PO daily at 1600 (Reported) Magnesium Oxide (Magnesium) 250 Mg Tablet 250 MG PO QAM (Reported) Melatonin (Melatonin) 3 Mg Tablet 6 MG PO HS (Reported) Omeprazole (Omeprazole) 20 Mg Capsule.dr 20 MG PO QAM (Reported) Polyethylene Glycol 3350 (Miralax) 17 Gm Powd.pack 17 GM PO QAM (Reported) Pyridoxine (Vitamin B-6) 50 Mg Tablet 50 MG PO HS (Reported) Risperidone (Risperidone) 0.25 Mg Tablet 0.25 MG PO BID (Reported) Sennosides (Senna) 8.6 Mg Tablet 8.6 MG PO HS (Reported) Sertraline HCl (Sertraline) 50 Mg Tablet 50 MG PO QAM (Reported) As needed Acetaminophen (Acetaminophen) 325 Mg Tablet 650 MG PO Q4H PRN PRN For Pain ( Reported) Alprazolam (Alprazolam) 0.5 Mg Tablet 0.5 MG PO TID PRN PRN For Anxiety ( Reported) Polyethylene Glycol 3350 (Miralax) 17 Gm Powd.pack 17 GM PO DAILY PRN PRN For Constipation Prescribed by: KELLY GERMAIN MD Sennosides (Senna) 8.6 Mg Tablet 17.2 MG PO BID PRN PRN For Constipation Prescribed by: KELLY GERMAIN MD Tizanidine (Tizanidine) 2 Mg Capsule 2 MG PO q6 hours PRN PRN For Spasm ( Reported) oxyCODONE (oxyCODONE) 5 Mg Capsule 5 MG PO Q4H PRN PRN For Pain (Reported) Additional med instructions Augmentin 500/125 Followup Plan Disposition: home Follow-up plan Follow-up with your primary care doctor within the next week. Discharge Diet: No restrictions Discharge Activity: No restrictions Patient Instructions You came to the hospital on 11/28 with a pneumonia and a urinary tract infection. These were both treated with IV antibiotics for 2 days and we would like you you continue oral antibiotics for the next 5 days. Please take: Augmentin 500/125mg twice per day starting on 12/01 and ending on 12/05 Follow-up Provider: Art Vance DO Follow-up with PCP in: 1 week Time spent Greater than 35 minutes spent on discharge planning, coordination, and documentation. Attending Statement The patient was seen and examined together with Dr. Salgado on 11/30/16 and I have added additional information to the note above. copies to: Art Vance Adam J DO Nov 30, 2016 11:23 Susana Chery DO Nov 30, 2016 13:28
--- NOTE | 2016-11-30 14:35 | NUR ---
Discharge of patient Reviewed discharge instructions with patient, patient verbalized understanding. Patient discharged via wheelchair with [facility] transport. IV and Carrillo previously discontinued. Report called to [facility] nurse.
== END 2016-11-30 14:20 | DRG 177 ==
LOC: EDUNIT# 22:32 → SED 22:32 → EDBD 22:32 → OSC 11-28 01:52 → PCC 11-28 02:48
PROVIDERS: ADMIT Internal Medicine; ATTEND Neuromusculoskeletal Medicine & OMM
PROC: 4A033B1 Measurement of Arterial Pressure, Peripheral, Percutaneous Approach (ICD-10-PCS; principal; 2016-11-28)
DX: J69.0 Pneumonitis due to inhalation of food and vomit (principal); G93.41 Metabolic encephalopathy; R53.2 Functional quadriplegia; N30.00 Acute cystitis without hematuria; I10 Essential (primary) hypertension; K21.9 Gastro-esophageal reflux disease without esophagitis; R13.19 Other dysphagia; G89.29 Other chronic pain; Z87.891 Personal history of nicotine dependence; Z99.3 Dependence on wheelchair; Z86.73 Personal history of transient ischemic attack (TIA), and cerebral infarction without residual deficits